=== PATIENT | female | born 2000 | race Caucasian/White ===

== ENCOUNTER → 2021-03-02 | Outpatient (CLI) | payer BC | LOC: KOH-I 15:05 | DX: J40 Bronchitis, not specified as acute or chronic (principal) | CPT/HCPCS: 71046 ==

== ENCOUNTER → 2021-08-10 | Outpatient (CLI) | payer BC | LOC: HEART 5 14:39 | DX: R00.2 Palpitations (principal) ==

== ENCOUNTER → 2021-11-11 | Outpatient (CLI) | payer BC | LOC: HEART 5 08:28 | DX: R07.9 Chest pain, unspecified (principal); R00.2 Palpitations | CPT/HCPCS: 93306 ==